=== PATIENT | female | born 1955 | race Caucasian/White ===

== ENCOUNTER → 2017-09-19 | Outpatient (CLI) | payer BC, OTHER ==
[~2017-09-19] MED LIST: ASPIR 8181 MG PO; BENICAR40 MG PO; BYSTOLIC10 MG PO; CALTRATE 600 +1 EACH; CRESTOR20 MG PO; FENOFIBRATE160 MG PO; FENTANYL PA12 MCG/HR; HYDROCHLOROTH12.5 MG PO; LEVOTHYROXINE0.05 MG PO; MINIPRIN81 MG PO; MULTIVITAMINS PO; NORVASC5 MG PO; PLAVIX 75 MG TA75 MG PO; PREVACID 30MG C30 M1 PO; VICOPROFEN 2001 EACH
--- NOTE | ~2017-09-19 | EKG ---
[address] [address] ELECTROCARDIOGRAM REPORT Name: DAWIT KAY Room #: [facility]#: [id number] Admission: 09/19/17 Attend Phys: Marah Zavala MD Discharge: Date of : 53 Report #: [id number] THIS REPORT FOR: //name// [facility] Test Date: 2017-09-19 Test Time: 09:18:01 Pat Name: DAWIT KAY Department: Room: Gender: F Senior Marketing Specialist: Skyler TAVAREZ : 1955 Requested By: Marah Zavala Order Number: [id number] MD: Duc Mcgill Measurements Intervals [place] Rate: 61 P: 60 AK: 160 QRS: -25 QRSD: 102 T: 43 QT: 416 QTc: 419 Interpretive Statements Sinus rhythm Probable inferior infarct, old Minimal ST elevation, anterior leads Compared to ECG 01/29/2014 07:55:38 ST (T wave) deviation now present Myocardial infarct finding still present Electronically Signed On 09-19-2017 12:35:04 CDT by Duc Mcgill [email or web address] <ELECTRONICALLY SIGNED> By: Duc Mcgill MD 09/19/17 1235 7 7 Duc Mcgill MD /EPI
[2017-09-19 09:21] LABS: CALCIUM 10.1 mg/dL (8.5-10.1); CREATININE 0.7 mg/dL (0.6-1.0); POTASSIUM 4.4 mmol/L (3.5-5.1)
[2017-09-19 09:22] LABS: INR 1.1; PROTIME 10.8 Seconds (9.3-11.4)
== END ==
LOC: LABMALL 08:41
PROVIDERS: Anesthesiology
DX: Z01.818 Encounter for other preprocedural examination (principal); I10 Essential (primary) hypertension; I21.9 Acute myocardial infarction, unspecified